=== PATIENT | female | born 1970 | race Caucasian/White ===

== ENCOUNTER 2017-02-12 08:57 | Emergency (ER) | payer BC, OTHER, SELFPAY ==
[~2017-02-12] VITALS: Ht 162.6 cm; Wt 51.3 kg
[2017-02-12 09:03] VITALS: BP 104/69
[2017-02-12] MEDS ORDERED: LIDOCAINE 1%, 20ML ONE (09:59)
[2017-02-12] MEDS ORDERED: LIDOCAINE 1%, 20ML SQ ONE (10:00)
[2017-02-12] MEDS ORDERED: INSULIN REGULAR 100 UNITS/ML, 3ML VIAL SQ-INSULIN SCH (11:00)
== END 2017-02-12 10:32 | disposition home or self-care (01) ==
LOC: ED 10:26
DX: L03.011 Cellulitis of right finger (principal); E11.65 Type 2 diabetes mellitus with hyperglycemia
CPT/HCPCS: 26010; 96372